=== PATIENT | male | born 1990 | race Caucasian/White ===

== ENCOUNTER 2016-12-25 11:01 | Emergency (ER) | payer SELFPAY ==
[~2016-12-25] VITALS: Ht 170.2 cm; Wt 65.8 kg
[~2016-12-25 11:01] MED LIST: PRM5C60 TOP
[2016-12-25] MEDS ORDERED: NS IV 1000 ML 1,000 ML IV STA (11:51)
[2016-12-25] MEDS ORDERED: ONDANSETRON 4 MG/2 ML (SDV) Z0FRAN IVP ONE (12:00)
--- NOTE | 2016-12-25 12:05 | ED GI ---
General Chief Complaint: Abdominal/GI Problems Stated Complaint: N/V Nursing Triage Note: c/o vomiting and diarrhea x 4 days. Sepsis Screen: No Definite Risk Source of Information: Patient Exam Limitations: No Limitations History of Present Illness Time Seen By Provider: 12:00 Initial Comments Here with report of nausea, vomiting and diarrhea for the last 4 days. Patient is homeless. States he has not gotten better despite rest. Reports abdominal cramping with vomiting and diarrhea. Timing/Duration: 4-5 Days Severity/Quality: Moderate, Cramping Location: Generalized Abdomen Radiation: No Radiation Modifying Factors: Worsens With Eating Associated Symptoms: No Back Pain, No Chest Pain, No Fever/Chills, Nausea/ Vomiting, No Shortness of Air, No Weakness Allergies and Home Medications Allergies Coded Allergies: calamine (Verified Allergy, Mild, RASH, 03/28/12) Review of Systems Constitutional: see HPI, No chills, No fever EENTM: No Symptoms Reported Respiratory: No Symptoms Reported Cardiovascular: No Symptoms Reported Gastrointestinal: See HPI, Abdominal Pain, Diarrhea, Nausea, Vomiting Genitourinary: No Symptoms Reported Musculoskeletal: no symptoms reported Skin: no symptoms reported Psychiatric/Neurological: No Symptoms Reported All Other Systems Reviewed Negative Unless Noted: Yes Past Qndaoxn-Asdzma-Zlnwor Hx Patient Social History Alcohol Use: Denies Use Recreational Drug Use: No Smoking Status: Current Everyday Smoker Recent Foreign Travel: No Contact w/Someone Who Travel: No Recent Infectious Disease Expo: No Surgeries History of Surgeries: No Respiratory History of Respiratory Disorde: No Cardiovascular History of Cardiac Disorders: No Neurological History of Neurological Disord: No Genitourinary History of Genitourinary Disor: No Gastrointestinal History of Gastrointestinal Di: No Musculoskeletal History of Musculoskeletal Dis: No Endocrine History of Endocrine Disorders: No HEENT History of HEENT Disorders: No Cancer History of Cancer: No Psychosocial History of Psychiatric Problem: No Integumentary History of Skin or Integumenta: No Blood Transfusions History of Blood Disorders: No Reviewed Nursing Assessment Reviewed/Agree w Nursing PMH: Yes Family Medical History Significant Family History: No Pertinent Family Hx Physical Exam Vital Signs VS - Last 72 Hours, by Label 12/25/16 11:30 Temp 97.6 Pulse 86 Resp 16 B/P (MAP) 115/76 Pulse Ox 99 Capillary Refill : Less Than 3 Seconds General Appearance: WD/WN, no apparent distress Neck: full range of motion, supple Respiratory: lungs clear, normal breath sounds Cardiovascular: regular rate, rhythm, no murmur Peripheral Pulses: 2+ Dorsalis Pedis (R), 2+ Left Dors-Pedis (L), 2+ Radial Pulses (R), 2+ Radial Pulses (L) Gastrointestinal: non tender, soft Extremities: non-tender, normal inspection Back: normal inspection, no CVA tenderness, no vertebral tenderness Neurologic/Psychiatric: alert, normal mood/affect, oriented x 3 Skin: normal color, warm/dry Progress/Results/Core Measures Results/Orders Lab Results Laboratory Tests Test 12/25/16 12:25 12/25/16 16:05 Range/Units White Blood Count 11.0 4.3-11.0 10^3/uL Red Blood Count 6.27 H 4.35-5.85 10^6/uL Hemoglobin 18.2 H 13.3-17.7 G/DL Hematocrit 52 40-54 % Mean Corpuscular Volume 84 80-99 FL Mean Corpuscular Hemoglobin 29 25-34 PG Mean Corpuscular Hemoglobin Concent 35 32-36 G/DL Red Cell Distribution Width 13.8 10.0-14.5 % Platelet Count 230 130-400 10^3/uL Mean Platelet Volume 11.1 H 7.4-10.4 FL Neutrophils (%) (Auto) 73 42-75 % Lymphocytes (%) (Auto) 15 12-44 % Monocytes (%) (Auto) 11 0-12 % Eosinophils (%) (Auto) 1 0-10 % Basophils (%) (Auto) 1 0-10 % Neutrophils # (Auto) 8.1 H 1.8-7.8 X 10^3 Lymphocytes # (Auto) 1.6 1.0-4.0 X 10^3 Monocytes # (Auto) 1.2 H 0.0-1.0 X 10^3 Eosinophils # (Auto) 0.1 0.0-0.3 10^3/uL Basophils # (Auto) 0.1 0.0-0.1 10^3/uL Sodium Level 136 135-145 MMOL/L Potassium Level 3.9 3.6-5.0 MMOL/L Chloride Level 104 98-107 MMOL/L Carbon Dioxide Level 21 21-32 MMOL/L Anion Gap 11 5-14 MMOL/L Blood Urea Nitrogen 15 7-18 MG/DL Creatinine 0.91 0.60-1.30 MG/DL Estimat Glomerular Filtration Rate > 60 BUN/Creatinine Ratio 16 Glucose Level 97 70-105 MG/DL Calcium Level 9.6 8.5-10.1 MG/DL Total Bilirubin 0.8 0.1-1.0 MG/DL Aspartate Amino Transf (AST/SGOT) 37 H 5-34 U/L Alanine Aminotransferase (ALT/SGPT) 78 H 0-55 U/L Alkaline Phosphatase 85 40-136 U/L Total Protein 8.8 H 6.4-8.2 GM/DL Albumin 4.8 H 3.2-4.5 GM/DL Urine Color YELLOW Urine Clarity SLIGHTLY CLOUDY Urine pH 5 5-9 Urine Specific [place] 1.025 H 1.016-1.022 Urine Protein 2+ H NEGATIVE Urine Glucose (UA) NEGATIVE NEGATIVE Urine Ketones NEGATIVE NEGATIVE Urine Nitrite NEGATIVE NEGATIVE Urine Bilirubin NEGATIVE NEGATIVE Urine Urobilinogen NORMAL NORMAL MG/DL Urine Leukocyte Esterase 1+ H NEGATIVE Urine RBC (Auto) NEGATIVE NEGATIVE Urine RBC NONE /HPF Urine WBC 2-5 /HPF Urine Crystals PRESENT H /LPF Urine Calcium Oxalate Crystals LARGE H /LPF Urine Bacteria TRACE /HPF Urine Casts NONE /LPF Urine Mucus LARGE H /LPF Urine Culture Indicated NO Urine Opiates Screen NEGATIVE NEGATIVE Urine Oxycodone Screen NEGATIVE NEGATIVE Urine Methadone Screen NEGATIVE NEGATIVE Urine Propoxyphene Screen NEGATIVE NEGATIVE Urine Barbiturates Screen NEGATIVE NEGATIVE Ur Tricyclic Antidepressants Screen NEGATIVE NEGATIVE Urine Phencyclidine Screen NEGATIVE NEGATIVE Urine Amphetamines Screen POSITIVE H NEGATIVE Urine Methamphetamines Screen POSITIVE H NEGATIVE Urine Benzodiazepines Screen NEGATIVE NEGATIVE Urine Cocaine Screen NEGATIVE NEGATIVE Urine Cannabinoids Screen POSITIVE H NEGATIVE My Orders Orders - MAAME KEENE MD Cbc With Automated Diff (12/25/16 11:51) Comprehensive Metabolic Panel (12/25/16 11:51) Ua Culture If Indicated (12/25/16 11:51) Ondansetron Injection (Zofran Injectio (12/25/16 12:00) Ns Iv 1000 Ml (Sodium Chloride 0.9%) (12/25/16 11:51) Saline Lock/Iv-Start (12/25/16 11:51) Drug Screen Stat (Urine) (12/25/16 12:15) Ns Iv 1000 Ml (Sodium Chloride 0.9%) (12/25/16 13:22) Medications Given in ED Current Medications Medications Dose Ordered Sig/Eric Route Start Time Stop Time Status Last Admin Dose Admin Ondansetron HCl 4 mg ONCE ONCE IVP 12/25/16 12:00 12/25/16 12:01 DC 12/25/16 12:21 4 MG Sodium Chloride 1,000 ml @ 0 mls/hr Q0M ONCE IV 12/25/16 13:22 12/25/16 13:23 DC 12/25/16 13:28 0 MLS/HR Vital Signs/I&O Vital Sign - Last 12Hours 12/25/16 11:30 Temp 97.6 Pulse 86 Resp 16 B/P (MAP) 115/76 Pulse Ox 99 Blood Pressure Mean: 89 Progress Note : Progress Note Seen and evaluated. IV, labs, UA, normal saline 1 L bolus and Zofran 4 mg IV ordered. Monitor patient. Repeat normal saline 1 L bolus. 1635: Care delayed as patient was unable to urinate. Urine finally received. Patient is up walking around and states he feels better and is asking to go to the vending machine. Discharged home with return precautions. Patient verbalize understanding instructions and agreement with plan. Departure Impression Impression: Primary Impression: Dehydration Additional Impressions: Vomiting Qualified Codes: R11.2 - Nausea with vomiting, unspecified Diarrhea Qualified Codes: R19.7 - Diarrhea, unspecified Disposition: 01 HOME, SELF-CARE Condition: Improved Departure-Patient Inst. Decision time for Depature: 16:42 Referrals: NO,LOCAL PHYSICIAN (PCP/Family) Primary Care Physician Patient Instructions: Dehydration, Adult (DC), Diarrhea in Adolescents and Adults, Nausea and Vomiting, Adult (DC) Add. Discharge Instructions: All discharge instructions reviewed with patient and/or family. Voiced understanding. Clear liquid diet for 24 hours and then advance as tolerated. Follow-up with your Dr. in a few days for recheck and other evaluation. Return for worse pain , fever, vomiting, weakness, breathing problems or other concerns as needed. MAAME KEENE MD Dec 25, 2016 12:05
[2016-12-25 12:34] LABS: BASOPHILS # (AUTO) 0.1 10^3/uL (0.0-0.1); BASOPHILS % (AUTO) 1 % (0-10); EOSINOPHILS # (AUTO) 0.1 10^3/uL (0.0-0.3); EOSINOPHILS % (AUTO) 1 % (0-10); LYMPHOCYTES # (AUTO) 1.6 X 10^3 (1.0-4.0); LYMPHOCYTES % (AUTO) 15 % (12-44); MEAN CORPUSCULAR HEMOGLOBIN 29 PG (25-34); MEAN CORPUSCULAR HGB CONC 35 G/DL (32-36); MEAN CORPUSCULAR VOLUME 84 FL (80-99); MEAN PLATELET VOLUME 11.1 FL (7.4-10.4); MONOCYTES # (AUTO) 1.2 X 10^3 (0.0-1.0); MONOCYTES % (AUTO) 11 % (0-12); NEUTROPHILS # (AUTO) 8.1 X 10^3 (1.8-7.8); NEUTROPHILS % (AUTO) 73 % (42-75); PLATELET COUNT 230 10^3/uL (130-400); RED BLOOD COUNT 6.27 10^6/uL (4.35-5.85); RED CELL DISTRIBUTION WIDTH 13.8 % (10.0-14.5)
[2016-12-25 12:53] LABS: ALANINE AMINOTRANSFERASE 78 U/L (0-55); ALBUMIN 4.8 GM/DL (3.2-4.5); ANION GAP 11 MMOL/L (5-14); ASPARTATE AMINO TRANSFERASE 37 U/L (5-34); BILIRUBIN,TOTAL 0.8 MG/DL (0.1-1.0); BLOOD UREA NITROGEN 15 MG/DL (7-18); BUN/CREATININE RATIO 16; CALCIUM 9.6 MG/DL (8.5-10.1); CARBON DIOXIDE 21 MMOL/L (21-32); CHLORIDE 104 MMOL/L (98-107); CREATININE SERUM 0.91 MG/DL (0.60-1.30); GFR ESTIMATED > 60; GLUCOSE 97 MG/DL (70-105); POTASSIUM 3.9 MMOL/L (3.6-5.0); SODIUM 136 MMOL/L (135-145); TOTAL PROTEIN 8.8 GM/DL (6.4-8.2)
[2016-12-25] MEDS ORDERED: NS IV 1000 ML 1,000 ML IV ONE (13:22)
[2016-12-25 16:13] LABS: BILIRUBIN,URINE NEGATIVE (NEGATIVE); KETONES,URINE NEGATIVE (NEGATIVE); LEUKOCYTE ESTERASE ,URINE 1+ (NEGATIVE); NITRITE,URINE NEGATIVE (NEGATIVE); PH,URINE 5 (5-9); PROTEIN,URINE 2+ (NEGATIVE); UROBILINOGEN,URINE NORMAL (NORMAL)
[2016-12-25 16:21] LABS: CALCIUM OXALATE CRYSTALS,UR LARGE /LPF
[2016-12-25 16:47] VITALS: BP 116/80
== END 2016-12-25 16:47 | disposition home or self-care (01) ==
LOC: EDUNIT# 11:01 → ER 11:03
DX: E86.0 Dehydration (principal); F17.200 Nicotine dependence, unspecified, uncomplicated
CPT/HCPCS: 36415; 80053; 80306; 81000; 85025; 96361; 96374

== ENCOUNTER 2018-07-26 06:50 | Emergency (ER) | payer SELFPAY ==
[~2018-07-26] VITALS: Ht 167.6 cm; Wt 76.2 kg
[2018-07-26 07:28] VITALS: BP 131/80
[2018-07-26] MEDS ORDERED: AMOX500C2 PO (08:54)
== END 2018-07-26 07:54 | disposition left against medical advice (07) ==
LOC: EDUNIT# 06:50 → ER 06:53
DX: K08.89 Other specified disorders of teeth and supporting structures (principal)
CPT/HCPCS: 99282

== ENCOUNTER 2018-07-26 08:01 | Emergency (ER) | payer SELFPAY ==
[~2018-07-26] VITALS: Ht 167.6 cm; Wt 76.2 kg
[2018-07-26] MEDS ORDERED: AMOX500C2 PO (08:54)
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
[2018-07-26] MEDS ORDERED: LIDOCAINE 2% VISCOUS 15 ML UDC PO ONE (09:00)
[2018-07-26 09:04] VITALS: BP 141/87
== END 2018-07-26 09:04 | disposition home or self-care (01) ==
LOC: EDUNIT# 08:01 → ER 08:02
DX: K04.7 Periapical abscess without sinus (principal); F17.200 Nicotine dependence, unspecified, uncomplicated; Z88.8 Allergy status to other drugs, medicaments and biological substances
CPT/HCPCS: 99283

== ENCOUNTER 2019-02-17 10:32 | Emergency (ER) | payer SELFPAY ==
[~2019-02-17] VITALS: Ht 167.7 cm; Wt 68.0 kg
[~2019-02-17 10:32] MED LIST changes: +AMOX500C2 PO
[2019-02-17] MEDS ORDERED: LIDOCAINE 1% INJ 20 ML 20 ML VIAL INJ ONE (11:00)
--- NOTE | 2019-02-17 11:01 | ED Upper Extremity ---
General Chief Complaint: Laceration Stated Complaint: L ARM INJ Source: patient Exam Limitations: no limitations History of Present Illness Date Seen by Provider: Feb 17, 2019 Time Seen by Provider: 10:59 Initial Comments To ER with laceration to the dorsal aspect left forearm. Tetanus is up-to-date last 5 years. He was moving boxes when a machete fell off the top of the box and lacerated his arm. Onset: just prior to arrival Severity: moderate Pain/Injury Location: left forearm Method of Injury: unknown Modifying Factors: Improves With Movement Allergies and Home Medications Allergies Coded Allergies: calamine (Verified Allergy, Mild, RASH, 03/28/12) Home Medications Amoxicillin 500 Mg Capsule, 500 MG PO TID Prescribed by: GUALBERTO CLIFFORD on 07/26/18 0840 Patient Home Medication List Home Medication List Reviewed: Yes Review of Systems Constitutional: see HPI EENTM: see HPI Respiratory: no symptoms reported Cardiovascular: no symptoms reported Genitourinary: no symptoms reported Musculoskeletal: no symptoms reported Skin: see HPI Psychiatric/Neurological: No Symptoms Reported Past Lfkhdww-Xndsjg-Xkokbr Hx Past Medical History Surgeries: No Respiratory: No Cardiac: No Neurological: No Genitourinary: No Gastrointestinal: No Musculoskeletal: No Endocrine: No HEENT: No Cancer: No Psychosocial: No Integumentary: No Blood Disorders: No Family Medical History No Pertinent Family Hx Physical Exam Vital Signs Vital Signs - First Documented 02/17/19 10:49 Temp 36.8 Pulse 86 Resp 16 B/P (MAP) 128/80 (96) Pulse Ox 99 O2 Delivery Room Air Capillary Refill : Height, Weight, BMI Height: 5'6.00" Weight: 168lbs. oz. 76.151691bi; BMI Method:Stated General Appearance: WD/WN, no apparent distress Respiratory: no respiratory distress, no accessory muscle use Gastrointestinal: normal bowel sounds, non tender Shoulder: normal inspection, non-tender Elbow/Forearm: Left, pain (1 semi-laceration depth to the subcutaneous tissue dorsal aspect midline left forearm. Finger and wrist extensor functions are intact sensation intact) Neurologic/Tendon: normal sensation, normal motor functions, normal tendon functions Neurologic/Psychiatric: alert, normal mood/affect, oriented x 3 Skin: normal color, warm/dry Procedures/Interventions Wound Location: Upper Extremities Wound Length (cm): 1 Wound's Depth, Shape: linear Wound Explored: clean Anesthesia: 1% Lidocaine Suture: Prolene Suture Size: 4-0 Number of Sutures: 4 Layer Closure?: 1 Number Deep Layer Sutures: 0 Progress/Results/Core Measures Results/Orders My Orders Orders - NICHOLAS ALVARADO APRN Lidocaine 1% Inj 20 Ml (Xylocaine 1% Inj (02/17/19 11:00) Medications Given in ED Current Medications Medications Dose Ordered Sig/Eric Route Start Time Stop Time Status Last Admin Dose Admin Lidocaine HCl 2 ml ONCE ONCE INJ 02/17/19 11:00 02/17/19 11:01 DC 02/17/19 11:03 2 ML Vital Signs/I&O 02/17/19 10:49 Temp 36.8 Pulse 86 Resp 16 B/P (MAP) 128/80 (96) Pulse Ox 99 O2 Delivery Room Air Departure Impression Primary Impression: Arm laceration Qualified Codes: S41.112A - Laceration without foreign body of left upper arm, initial encounter Disposition: HOME, SELF-CARE Condition: Stable Departure-Patient Inst. Decision time for Depature: 11:01 Referrals: [facility] (PCP/Family) Primary Care Physician Patient Instructions: Laceration Repair With Stitches (DC) Add. Discharge Instructions: 1. Return to ER in 7-10 days to have the stitches removed 2. You can shower allowing water run over the starting tonight but do not submerge her soak in water such as a hot tub bath tub or swimming pool until stitches are removed. Return to ER before then for any sign of infection such as redness or swelling or discharge All discharge instructions reviewed with patient and/or family. Voiced understanding. NICHOLAS ALVARADO APRN Feb 17, 2019 11:01 POS
[2019-02-17 11:10] VITALS: BP 128/80
== END 2019-02-17 11:10 | disposition home or self-care (01) ==
LOC: EDUNIT# 10:32 → ER 10:33
DX: S51.812A Laceration without foreign body of left forearm, initial encounter (principal); Z88.8 Allergy status to other drugs, medicaments and biological substances; W20.8XXA Other cause of strike by thrown, projected or falling object, initial encounter
CPT/HCPCS: 12001

== ENCOUNTER 2019-12-27 00:53 | Emergency (ER) | payer SELFPAY ==
[~2019-12-27] VITALS: Ht 167 cm; Wt 65.0 kg
[2019-12-27] MEDS ORDERED: TETANUS,DIPTH,PERTUSS P/F (BOOSTRIX) 0.5 ML VIAL IM ONE (01:15)
[2019-12-27] MEDS ORDERED: LIDOCAINE/EPI 2% 1:100,00 (XYLOCAINE) 20 ML VIAL INJ ONE (01:30)
--- NOTE | 2019-12-27 01:30 | NUR ---
Dr. Cruz in room for laceration repair; Dr. Cruz administered the Lidocaine documented in the MAY.
[2019-12-27] MEDS ORDERED: RX-TRIMETH/SULFA. 160-800 MG (BACTRIM DS) TAB PPK#2 PO ONE (01:49)
[2019-12-27] MEDS ORDERED: SULF1TAB35 PO (01:49)
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
[2019-12-27] MEDS ORDERED: RX-TRIMETH/SULFA. 160-800 MG (BACTRIM DS) TAB PPK#2 PO STA (01:51)
--- NOTE | 2019-12-27 01:51 | NUR ---
Caren in room cleansing and dressing the wound.
[2019-12-27 02:01] VITALS: BP 139/90
== END 2019-12-27 02:02 | disposition home or self-care (01) ==
LOC: EDUNIT# 00:53 → ER 00:55
DX: S81.811A Laceration without foreign body, right lower leg, initial encounter (principal); S81.011A Laceration without foreign body, right knee, initial encounter; Z23 Encounter for immunization; F17.210 Nicotine dependence, cigarettes, uncomplicated; Z88.8 Allergy status to other drugs, medicaments and biological substances; V19.9XXA Pedal cyclist (driver) (passenger) injured in unspecified traffic accident, initial encounter
CPT/HCPCS: 90715; 99284

== ENCOUNTER 2020-02-13 10:59 | Emergency (ER) | payer SELFPAY ==
[~2020-02-13] VITALS: Ht 167.7 cm; Wt 65.3 kg
[~2020-02-13 10:59] MED LIST changes: +SULF1TAB35 PO
[2020-02-13] MEDS ORDERED: BSS 15 ML ONE (11:11)
[2020-02-13] MEDS ORDERED: BSS 15 ML IR ONE (11:15)
[2020-02-13] MEDS ORDERED: LIDOCAINE 1% INJ 20 ML 20 ML VIAL INJ ONE (11:15)
[2020-02-13 11:20] LABS: HEMOGLOBIN 14.9 g/dL (13.3-17.7); MEAN PLATELET VOLUME 10.4 fL (9.0-12.2)
[2020-02-13 11:33] LABS: ALBUMIN 4.3 GM/DL (3.2-4.5); CHLORIDE 105 MMOL/L (98-107); POTASSIUM 3.9 MMOL/L (3.6-5.0); SODIUM 139 MMOL/L (135-145)
[2020-02-13 11:34] LABS: CALCIUM 9.2 MG/DL (8.5-10.1)
[2020-02-13 11:36] LABS: CARBON DIOXIDE 21 MMOL/L (21-32); GLUCOSE 155 MG/DL (70-105); TOTAL PROTEIN 7.5 GM/DL (6.4-8.2)
[2020-02-13 11:37] LABS: BILIRUBIN,TOTAL 0.6 MG/DL (0.1-1.0)
[2020-02-13 11:39] LABS: ALKALINE PHOSPHATASE 71 U/L (40-136); CREATININE SERUM 0.98 MG/DL (0.60-1.30); GFR ESTIMATED > 60
[2020-02-13 11:40] LABS: BUN/CREATININE RATIO 18
[2020-02-13 11:42] LABS: ALANINE AMINOTRANSFERASE 27 U/L (0-55)
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
--- NOTE | 2020-02-13 12:30 | NUR ---
Wounds cleaned with chlorhexidine solution et NS by PCCT.
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
--- NOTE | 2020-02-13 13:30 | NUR ---
X4 5-O Prolene sutures placed to lateral eyebrow. X5 4-0 Prolene sutures placed to L pinky finger.
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
[2020-02-13] MEDS ORDERED: CEPH500T PO (13:58)
[2020-02-13] MEDS ORDERED: cefTRIAXone FOR IV USE 1,000 MG in WATER (STERILE) FOR INJECTION 10 ML IV ONE (14:00)
[2020-02-13 14:02] VITALS: BP 141/82
== END 2020-02-13 14:02 | disposition home or self-care (01) ==
LOC: EDUNIT# 10:59 → ER 10:59
DX: S01.01XA Laceration without foreign body of scalp, initial encounter (principal); S61.217A Laceration without foreign body of left little finger without damage to nail, initial encounter; S01.112A Laceration without foreign body of left eyelid and periocular area, initial encounter; S09.90XA Unspecified injury of head, initial encounter; F17.210 Nicotine dependence, cigarettes, uncomplicated; Z88.8 Allergy status to other drugs, medicaments and biological substances; X97.XXXA Assault by smoke, fire and flames, initial encounter
CPT/HCPCS: 12001; 12011; 70450; 72125; 73030; 73130; 80053; 85027; 99284; G0480; 36415; 80320

== ENCOUNTER 2021-07-25 01:05 | Emergency (ER) | payer SELFPAY ==
[~2021-07-25] VITALS: Ht 167.7 cm; Wt 75.0 kg
[~2021-07-25 01:05] MED LIST changes: +CEPH500T PO; -SULF1TAB35 PO; +SULF1TAB38 PO
[2021-07-25 01:12] VITALS: BP 147/95
[2021-07-25] MEDS ORDERED: BSS 15 ML IR ONE (01:30)
[2021-07-25] MEDS ORDERED: FLUORESCEIN (FLUOR-I-STRIPS) 1 MG STRP OU ONE (01:30)
[2021-07-25] MEDS ORDERED: IBUPROFEN 800 MG (MOTRIN) TAB PO ONE (01:30)
[2021-07-25] MEDS ORDERED: ACETAMINOPHEN 500 MG TAB (TYLENOL) PO ONE (01:30)
[2021-07-25] MEDS ORDERED: TETRACAINE 0.5% OPHTH SOLN 4 ML BTL (SINGLE DOSE ONLY) OU ONE (01:30)
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
[2021-07-25] MEDS ORDERED: ERYTHROMYCIN OPHTH OINT 1 GM (SINGLE USE) TUBE ONE (01:42)
[2021-07-25] MEDS ORDERED: ERYTHROMYCIN OPHTH OINT 1 GM (SINGLE USE) TUBE OP SCH (06:00)
== END 2021-07-25 02:18 | disposition home or self-care (01) ==
LOC: EDUNIT# 01:05 → ER 01:06
DX: S05.02XA Injury of conjunctiva and corneal abrasion without foreign body, left eye, initial encounter (principal); F17.210 Nicotine dependence, cigarettes, uncomplicated; W22.8XXA Striking against or struck by other objects, initial encounter
CPT/HCPCS: 99283